=== PATIENT | male | born 1945 | race Caucasian/White ===

== ENCOUNTER 2018-08-09 14:58 | Outpatient (CLI) | payer MEDICARE ==
--- NOTE | 2018-08-09 15:34 | CT ---
FThoracic spine CT without contrast: 08/09/2018 HISTORY: Thoracic spine radiculopathy, right-sided back pain TECHNIQUE: Axial CT imaging at 3 mm intervals through the thoracic spine without contrast. Coronal an d sagittal reformatted imaging obtained. FINDINGS: Evaluation for central canal and/or neural foraminal stenosis is somewhat limited on noncon trast enhanced imaging. Dorsal column stimulators are present, inserted at the T12-L1 level, terminat ing within the posterior epidural region at the T8 level. Imaged lung parenchyma appears grossly unremarkable. Partially visualized coronary arterial calcification is present. No anterolisthesis or retrolisthesis noted within the thoracic spine. At T1-2, T2-3, T3-4, T4-5, T5-6, T6-7, T7-8, T8-9, T9-10, T10-11, T11-12, and T12-L1 there is no sign ificant central canal or neural foraminal stenosis on the basis of osteophyte formation. There is mul tilevel anterior osteophyte formation on the right including the T3-4 level through the T10-11 level, most prominent at T8-9 and T9-10. No acute fracture or evidence of dislocation. No suspicious lytic or blastic bone lesion. Mild anteri or wedging of the T3 vertebral body suggests remote trauma or physiologic wedging. A hemangioma is no daisy within the posterior elements of T1 on the left measuring 1.7 cm. At the C6-7 level and the C5-6 level there is bilateral facet and uncovertebral osteophyte formation with associated prominent bilat eral neural foraminal stenosis. Impression: No acute osseous abnormality. There is no osseous cause of significant central canal or n eural foraminal stenosis within the thoracic spine. Significant neural foraminal stenosis on the basi s of facet and uncovertebral osteophyte formation suspected within the imaged lower cervical spine.
== END 2018-08-09 14:59 | disposition home or self-care (01) ==
LOC: BICCT 14:58
PROVIDERS: ATTEND Specialist
DX: M54.14 Radiculopathy, thoracic region (principal)
CPT/HCPCS: 72128

== ENCOUNTER 2020-05-28 12:30 | Outpatient (CLI) | payer MEDICARE ==
[2020-05-28] MEDS ORDERED: Magnevist 469MG/ML 20 ML VIAL ONE (14:11)
--- NOTE | 2020-05-28 15:23 | MRI ---
MR the lumbar spine with and without contrast INDICATION: 74-year-old male with postlaminectomy syndrome COMPARISON: July 01, 2016 MR of the lumbar spine TECHNIQUE: Multiplanar multisequence MR images were obtained of lumbar spine with and without IV cont rast. The patient has a dorsal column stimulator. The patient met criteria for MR scanning. Parameters for safe scanning were monitored by the MR paint prep technician. Contrast: 20 cc of MultiHance. FINDINGS: Bone marrow: Bony hemangioma within the L4 and S1 vertebral level are similar appearing. Laminectomy changes at L4, L5 and S1 are similar. Distal spinal cord and conus: Susceptibility artifact from adjacent dorsal column stimulator lead sli ghtly limits visualization of the distal thoracic spinal cord. Conus is seen to terminate at the L1 level. Visualized retroperitoneum and paraspinal soft tissues: Normal. No lymphadenopathy demonstrated. Vertebral levels: L5-S1: No appreciable central canal or neuroforaminal narrowing. L4-5: There is a residual broad-based disc osteophyte complex and facet hypertrophy inducing moderate to severe bilateral neural foraminal narrowing which is stable prior exam. L3-4: There is a broad-based disc osteophyte complex with facet hypertrophy inducing moderate bilater al neural foraminal narrowing which is stable to the prior exam. There is stable mild central canal narrowing at this level. L2-3: No appreciable central canal or neuroforaminal narrowing. L1-L2: No appreciable central canal or neuroforaminal narrowing. T12-L1: No appreciable central canal or neuroforaminal narrowing. Postcontrast series: No abnormal enhancement demonstrated. IMPRESSION: 1. Stable postoperative lumbar spine. 2. Stable moderate to severe bilateral neural foraminal narrowing at L4-5. 3. Stable mild central canal narrowing and moderate bilateral neural foraminal narrowing at L3-4. 4. Dorsal column stimulator.
== END 2020-05-28 12:31 | disposition home or self-care (01) ==
LOC: MRI 12:30
PROVIDERS: ATTEND Specialist
DX: M96.1 Postlaminectomy syndrome, not elsewhere classified (principal); M51.16 Intervertebral disc disorders with radiculopathy, lumbar region; M48.061 Spinal stenosis, lumbar region without neurogenic claudication; Z98.890 Other specified postprocedural states
CPT/HCPCS: 72158; 82565; A9579

== ENCOUNTER 2020-09-04 13:30 | Outpatient (CLI) | payer MEDICARE | END 2020-09-04 13:31 | disposition home or self-care (01) | LOC: RAD 13:30 | PROVIDERS: ATTEND Specialist | DX: M51.16 Intervertebral disc disorders with radiculopathy, lumbar region (principal); M47.26 Other spondylosis with radiculopathy, lumbar region | CPT/HCPCS: 72120 ==

== ENCOUNTER 2020-11-13 16:03 | Outpatient (CLI) | payer MEDICARE | END 2020-11-13 16:04 | disposition home or self-care (01) | LOC: BICRAD 16:03 | PROVIDERS: ATTEND Nurse Practitioner Family | DX: B94.8 Sequelae of other specified infectious and parasitic diseases (principal); Z86.16 Personal history of COVID-19 | CPT/HCPCS: 71046 ==

== ENCOUNTER 2021-07-04 14:26 | Outpatient (CLI) | payer MEDICARE | END 2021-07-04 14:27 | disposition home or self-care (01) | LOC: BICRAD 14:26 | PROVIDERS: ATTEND Nurse Practitioner Family | DX: N23 Unspecified renal colic (principal); N20.0 Calculus of kidney | CPT/HCPCS: 74018 ==

== ENCOUNTER 2021-10-17 10:19 | Outpatient (CLI) | payer MEDICARE | END 2021-10-17 10:20 | disposition home or self-care (01) | LOC: MRI 10:19 | PROVIDERS: ATTEND Specialist | DX: M51.16 Intervertebral disc disorders with radiculopathy, lumbar region (principal) | CPT/HCPCS: 72148 ==

== ENCOUNTER 2022-02-12 13:19 | Outpatient (CLI) | payer MEDICARE ==
[2022-02-12 14:13] LABS: Hemoglobin 13.9 g/dL (13.5-17.5); Mean Corpuscular HGB CONC 33.8 g/dL (32.0-36.0); Mean Corpuscular Hemoglobin 31.7 pg (27.0-33.0); Mean Corpuscular Volume 93.6 fl (81.2-95.1); Mean Platelet Volume 10.4 fl (7.4-10.4); Platelet Count 189 10x3/uL (150-450); RBC Distribution Width 13.2 % (11.5-14.5); Red Blood Cell (RBC) Count 4.39 10x6/uL (4.32-5.72); White Blood Cell (WBC) Count 8.9 10x3/uL (3.5-10.5)
[2022-02-12 14:32] LABS: PTT 25.4 sec (22.0-33.0); Prothrombin Time 10.6 sec (9.5-12.1)
[2022-02-12 14:42] LABS: Anion Gap 13 mmol/L (10-20); BUN (Urea Nitrogen) 20 mg/dL (8.4-25.7); Calc. Creatinine Clearance 0 mL/min (70-130); Calcium 9.1 mg/dL (7.8-10.44); Carbon Dioxide 26 mmol/L (23-31); Chloride 107 mmol/L (98-107); Estimated GFR 88; Glucose 86 mg/dL (83-110); Potassium 3.7 mmol/L (3.5-5.1); Sodium 142 mmol/L (136-145)
== END 2022-02-12 13:20 | disposition home or self-care (01) ==
LOC: LABBT 13:19
PROVIDERS: ATTEND Surgery
DX: Z01.818 Encounter for other preprocedural examination (principal); Z20.822 Contact with and (suspected) exposure to COVID-19
CPT/HCPCS: 80048; 85027; 85610; 85730; 87811; 93005; 93010

== ENCOUNTER 2022-02-17 05:43 | Day surgery (SDC) | payer MEDICARE ==
[2022-02-13 15:34] VITALS: BMI 29.8
[2022-02-17] MEDS ORDERED: Thrombin 5000 UNITS/5 ML VIAL ONE (06:24)
[2022-02-17] MEDS ORDERED: Ketamine 50 MG/ML (10ML VIAL) ONE (06:55)
[2022-02-17] MEDS ORDERED: fentaNYL Citrate/PF 100 MCG/2 ML SYRINGE ONE (06:55)
[2022-02-17] MEDS ORDERED: CEFAZOLIN 2 GM VIAL ONE ×2 (07:01→11:36)
[2022-02-17] MEDS ORDERED: Sodium Chloride 0.9% 100 ML ONE ×2 (07:01→11:36)
[2022-02-17] MEDS ORDERED: Phenylephrine 10 MG/ML VIAL ONE (07:05)
[2022-02-17] MEDS ORDERED: NEOSTIGMINE 3 MG/3 ML SYR 3 MG/3 ML SYRINGE ONE (07:32)
[2022-02-17] MEDS ORDERED: PROPOFOL 200 MG/20 ML VIAL ONE (07:32)
[2022-02-17] MEDS ORDERED: Ondansetron PF 4 MG/2 ML Vial ONE (07:32)
[2022-02-17] MEDS ORDERED: ePHEDrine 50 MG/ML VIAL ONE (07:32)
[2022-02-17] MEDS ORDERED: Rocuronium Bromide 10 MG/ML (10ML VIAL) ONE (07:32)
[2022-02-17] MEDS ORDERED: Dexamethasone 20 MG/5 ML VIAL ONE (07:32)
[2022-02-17] MEDS ORDERED: Ketorolac Tromethamine 30 MG/ML VIAL ONE (07:32)
[2022-02-17] MEDS ORDERED: Glycopyrrolate 0.2 MG/ML 5 ML SYRINGE ONE (07:32)
[2022-02-17] MEDS ORDERED: PHENYLEPHRINE-NS 100 MCG/ML 10 ML SYRINGE ONE (07:32)
[2022-02-17] MEDS ORDERED: SUGAMMADEX SODIUM 200 MG/2 ML VIAL ONE (09:26)
[2022-02-17] MEDS ORDERED: Acetaminophen 325 MG TAB ONE (10:48)
== END 2022-02-17 15:32 | disposition home or self-care (01) ==
LOC: SDC 05:43
PROVIDERS: ATTEND Surgery
PROC: 0JPT0MZ Removal of Stimulator Generator from Trunk Subcutaneous Tissue and Fascia, Open Approach (ICD-10-PCS; principal; 2022-02-17)
PROC: 0JH70DZ Insertion of Multiple Array Stimulator Generator into Back Subcutaneous Tissue and Fascia, Open Approach (ICD-10-PCS; 2022-02-17)
PROC: 0ST20ZZ Resection of Lumbar Vertebral Disc, Open Approach (ICD-10-PCS; 2022-02-17)
PROC: 01NB0ZZ Release Lumbar Nerve, Open Approach (ICD-10-PCS; 2022-02-17)
DX: M51.16 Intervertebral disc disorders with radiculopathy, lumbar region (principal); M96.1 Postlaminectomy syndrome, not elsewhere classified; G89.4 Chronic pain syndrome; I10 Essential (primary) hypertension; M47.22 Other spondylosis with radiculopathy, cervical region; M70.61 Trochanteric bursitis, right hip; Z79.899 Other long term (current) drug therapy
CPT/HCPCS: 63030; 63047; 63685; 76000; C1767; C1787; J0690; J1100; J1885; J2370; J2405; J2704; J3370; J3490

== ENCOUNTER 2022-04-20 13:36 | Outpatient (CLI) | payer MEDICARE | END 2022-04-20 13:37 | disposition home or self-care (01) | LOC: BICRAD 13:36 | PROVIDERS: ATTEND Nurse Practitioner Family | DX: R07.81 Pleurodynia (principal) | CPT/HCPCS: 71046 ==

== ENCOUNTER 2022-05-14 10:16 | Outpatient (CLI) | payer MEDICARE | END 2022-05-14 10:17 | disposition home or self-care (01) | LOC: NM 10:16 | PROVIDERS: ATTEND Nurse Practitioner Family | DX: M54.6 Pain in thoracic spine (principal) | CPT/HCPCS: 78306; A9503 ==

== ENCOUNTER 2025-01-11 13:42 | Outpatient (CLI) | payer MEDICARE | END 2025-01-11 13:43 | disposition home or self-care (01) | LOC: SCSMRI 13:42 | PROVIDERS: ATTEND Family Medicine Sports Medicine | DX: M47.22 Other spondylosis with radiculopathy, cervical region (principal); M48.02 Spinal stenosis, cervical region | CPT/HCPCS: 72141; 76014 ==